=== PATIENT | male | born 1975 | race Two or more races ===

== ENCOUNTER 2020-02-08 04:45 | Emergency (ER) | payer OTHER ==
[~2020-02-08] VITALS: Ht 180.3 cm; Wt 77.1 kg
[2020-02-08] MEDS ORDERED: IBUPROFEN 400 MG TABLET ONE (04:57)
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
[2020-02-08] MEDS ORDERED: IBUPROFEN 400 MG TABLET PO ONE (05:00)
--- NOTE | 2020-02-08 05:36 | NUR ---
Patient discharged to home in stable condition. Written and verbal after care instructions given. Patient verbalizes understanding of instruction. Pt ambulated with steady gait.
[2020-02-08 05:38] VITALS: BP 131/79
== END 2020-02-08 05:39 | disposition home or self-care (01) ==
LOC: ER 04:45
DX: S09.8XXA Other specified injuries of head, initial encounter (principal); M54.2 Cervicalgia; X58.XXXA Exposure to other specified factors, initial encounter; Y93.89 Activity, other specified; Y92.89 Other specified places as the place of occurrence of the external cause; Y99.8 Other external cause status
CPT/HCPCS: 70450-TC; 72125-TC